=== PATIENT | male | born 1925 | race Caucasian/White ===

== ENCOUNTER 2016-10-20 17:51 | Inpatient (IN) | payer MEDICARE, BC ==
[~2016-10-20] VITALS: Ht 172.7 cm; Wt 72.7 kg
--- NOTE | ~2016-10-20 | HEMODYNAMI ---
PATIENT:MARY PIMENTEL MEDICAL RECORD: [id number] : [birth year] [facility] [id number] ADMISSION DATE: 10/20/16 Generatedon:10/22/20168:15 Patient name: MARY PIMENTEL Patient #: [id number] SSN: : 1925 Date of study: 10/22/2016 Page: Of Hemodynamic Procedure Report Patient Data Patient Demographics Procedure consent was obtained First Name: MARY Gender: Male Last Name: MARGARITO : 1925 Patient #: [id number] Age: 89 year(s) Race: Additional ID: [id number] Contact details Address: [address] [place] [address] [facility] State: [place] City: [place] Zip code: [address] Past Medical History History of disease Date Diagnosis Comments Peripheral vascular disease Allergies Allergen Reaction Date Comments Reported Other allergy 10/22/2016 Androgenic anabotic steroid Admission Admission Data Admission Date: 10/20/2016 Admission Time: 17:51 Room #: D.2113 Height (in.): 68 BSA: 1.98 (m2) Height (cm.): 172.72 BMI: 28.12 (kg/m2) Weight (lbs.): 184.97 Weight (kg.): 83.9 Lab Results Lab Result Date: 10/21/2016 Lab Result Time: 6:04 Biochemistry Name Units Result Min Max BUN mg/dl 50 --(----)-* 7 18 Creatinine mg/dl 2 --(----)-* 0.6 1.3 CBC Name Units Result Min Max Hematocrit % 44.2 --(*---)-- 42 54 Hemoglobin g/dl 15.1 --(-*--)-- 13.5 17.5 Procedure Procedure Types Cath Procedure Diagnostic Procedure LHC LHC w/Coronaries w/Grafts Miscellaneous Procedures Moderate Sedation up to 30 minutes Peripheral Cath Diagnostic Procedure Cath Peripheral Qbtrl-Rriqsyp-Kxx-Off Procedure Description Procedure Date Procedure Date: 10/22/2016 Procedure Start Time: 7:37 Procedure End Time: 8:14 Procedure Staff Name Function Ramses Sandy MD Performing Physician Adenike Mo RT Scrub Ad Chester RN Nurse Geronimo Gauthier RT Monitor Procedure Data Cath Procedure Fluoroscopy Diagnostic fluoroscopy Total fluoroscopy Time: 9.2 time: 9.2 min min Diagnostic fluoroscopy Total fluoroscopy dose: dose: 1384 mGy 1384 mGy Contrast Material Contrast Material Type Amount (ml) Isovue 300 215 Entry Location Entry Primary Successful Side Size Upsize 1 Upsize Entry Closure Stover ccessful Closure Location (Fr) (Fr) 2 (Fr) Remarks Device Remarks Femoral Right 5 Fr 6 Fr 6 Fr Exoseal artery Mid-Length Short Estimated blood loss: 10 ml Diagnostic catheters Device Type Used For End Catheter Placement Cordis 5Fr Pigtail Procedure Catheter (MP) Cordis 5Fr JL 4.0 Procedure Catheter (MP) Cordis 5Fr 3DRC Catheter Procedure (MP) Diagnostic Infinity 5Fr Procedure AR 2 MOD catheter Procedure Complications No complications Procedure Medications Medication Administration Route Dosage Oxygen NC 2 l/min Heparin Flush Bag added to field 2 bags (1000units/500ml NS) 0.9% NaCl I.V. 100 ml/hr Benadryl I.V. 50 mg Fentanyl I.V. 50 mcg Versed I.V. 0.5 mg Versed I.V. 0.5 mg Heparin Bolus I.V. 4000 units Dobutamine I.V. drip 5 mcg/kg/min (500mg/250ml D5W) Aspirin P.O. 325 mg Hemodynamics Rest BSA: 1.98 (m2) HGB: 15.1 (g/dl) O2 Consumption: Estimated: 217.22 (ml/min) O2 Co nsumption indexed: Estimated:109.71 (ml/min/m) Heart Rate: 61 (bpm) Snapshots Pre Cath Intra NCS Post Cath Vital Signs Time Heart Resp SPO2 etCO2 [id number] NIBP (mmHg) Rhythm Pain Sedation Rate (ipm) (%) (mmHg) (mmHg) Status Level (bpm) 7:23:48 53 17 91 0 0 181/71(136) NSR 0 (11) 10(A) , No pain 7:28:21 48 18 94 0 0 178/74(140) NSR 0 (11) 10(A) , No pain 7:32:53 41 18 98 0 0 184/71(136) NSR 0 (11) 10(A) , No pain 7:37:28 47 17 96 0 0 163/67(139) NSR 0 (11) 9(A) , No pain 7:41:54 54 17 92 0 0 155/68(133) NSR 0 (11) 9(A) , No pain 7:46:18 60 18 90 0 0 166/63(121) NSR 0 (11) 9(A) , No pain 7:50:46 64 18 92 0 0 148/68(124) NSR 0 (11) 9(A) , No pain 7:55:09 56 19 92 0 0 155/69(132) NSR 0 (11) 9(A) , No pain 7:59:33 63 17 90 0 0 165/67(119) NSR 0 (11) 9(A) , No pain 8:04:50 64 16 96 0 0 170/69(149) NSR 0 (11) 9(A) , No pain 8:10:12 57 16 95 0 0 172/67(135) NSR 0 (11) 9(A) , No pain 8:14:59 0 0 No Cuff NSR 0 (11) 9(A) , No pain Medications Time Medication Route Dose Verified Delivered Reason No alley Effectiveness by by 7:24:29 Oxygen NC 2 l/min Ad Duong Per physician Henrik Chester RN RN 7:24:39 Heparin Flush added 2 bags Ad Duong used for Bag to Henrik Chester RN procedure (1000units/500ml field RN NS) 7:24:52 0.9% NaCl I.V. 100 ml/hr Ad Galeanay Per physician Henrik Chester RN RN 7:25:46 Benadryl I.V. 50 mg Ad Ad Per physician Henrik Chester RN RN 7:35:15 Fentanyl I.V. 50 mcg Ad Duong for sedation Henrik Chester RN RN 7:35:22 Versed I.V. 0.5 mg Ad Ad for sedation Henrik Chester RN RN 7:56:01 Versed I.V. 0.5 mg Ad Ad for sedation Henrik Chester RN RN 7:56:14 Heparin Bolus I.V. 4000 units Ad Duong for Henrik Chester RN anticoagulation RN 8:08:25 Dobutamine I.V. 5 Ad Duong Per physician (500mg/250ml drip mcg/kg/min Henrik Chester RN D5W) RN 8:09:20 Aspirin P.O. 325 mg Ad Duong Per physician Henrik Chester RN day worker Log Time Note 7:01:07 Informed consent obtained and on chart 7:01:33 Diagnostic Cath status Elective 7:01:34 Ad Chester RN sent for patient. Start room use. 7:01:35 Time tracking: Regular hours 7:01:39 Plan of Care:Hemodynamics will remain stable., Cardiac rhythm will remain stable., Comfort level will be maintained., Respiratory function will remain adequate., Patient/ family verbilizes understanding of procedure., Procedure tolerated without complication., Recovers from procedure without complications.. 7:10:17 Patient received from Med II to CCL 1 Alert and oriented. Tansferred to table in Supine position. 7:10:18 Warm blankets applied, and beth hugger turned on for patient comfort. 7:10:18 Correct patient and procedure confirmed by team. 7:10:19 ECG and BP/O2 sat monitors applied to patient. 7:22:30 Vital chart was started 7:22:36 Baseline sample Acquired. 7:24:29 Oxygen 2 l/min NC was administered by Ad Chester RN; Per physician; 7:24:32 Rhythm: 2nd degree heart block 7:24:39 Heparin Flush Bag (1000units/500ml NS) 2 bags added to field was administered by Ad Chester RN; used for procedure; 7:24:52 0.9% NaCl 100 ml/hr I.V. was administered by Ad Chester RN; Per physician; 7:25:46 Benadryl 50 mg I.V. was administered by Ad Chester RN; Per physician; 7:26:09 H&P Date Dictated: 10/20/2016 Within 30 days and on chart.. 7:27:58 Pre-procedure instructions explained to patient. 7:27:59 Pre-op teaching completed and patient verbalized understanding. 7:28:00 Family in waiting room. 7:28:01 Patient NPO since Midnight. 7:28:29 Patient allergic to Other allergyAndrogenic anabotic steroid 7:28:31 Is the patient allergic to Iodine/contrast media? No. 7:28:33 Is patient on blood thinner?Yes 7:28:38 ACC The patient was administered the following blood thiners within the last 24 hours: ACCPlavix 7:28:39 Patient diabetic? Yes. 7:28:40 If diabetic: On Metformin? No 7:28:43 Previous problem with sedation/anesthesia? No ? 7:28:44 Snore? No 7:28:45 Sleep apnea? No 7:28:46 Deviated septum? No 7:28:46 Opens mouth fully? Yes 7:28:47 Sticks out tongue? Yes 7:28:48 Airway obstruction? No ? 7:28:50 Dentures? Yes out 7:28:57 Pre procedure: right dorsailis pedis pulse 1+ Palpable, but thready & weak; easily obliterated 7:28:59 Patient pain scale 0/10 ?. 7:29:05 IV patent on arrival in right wrist with 0.9% NaCl at O. 7:30:16 Lab Result : BUN 50 mg/dl 7:30:16 Lab Result : Creatinine 2 mg/dl 7:30:16 Lab Result : Hemoglobin 15.1 g/dl 7:30:16 Lab Result : Hematocrit 44.2 % 7:30:39 Lab results completed and on chart. 7:30:41 Right groin area was prepped with chlora-prep and draped in sterile fashion 7:30:43 Alarms reviewed by R. N. 7:30:43 Sharps counted by scrub and verified by R.N. 7:30:44 Physician paged 7:30:47 Use device set Femoral Dx 7:30:48 Tegaderm 4 x 4 opened to sterile field. 7:30:48 Acist Manifold opened to sterile field. 7:30:49 Acist Hand Control opened to sterile field. 7:30:50 Acist Syringe opened to sterile field. 7:30:50 Bag Decanter opened to sterile field. 7:30:51 Medline Cath Pack opened to sterile field. 7:30:51 Terumo 5Fr [place] Sheath opened to sterile field. 7:30:52 St Thong 260cm J .035 wire opened to sterile field. 7:30:53 Diagnostic Infinity 5Fr Multipack catheter opened to sterile field. 7:31:05 Procedure type changed to Cath procedure, Diagnostic procedure, LHC, LHC w/Coronaries w/Grafts, Miscellaneous Procedures, Moderate Sedation up to 30 minutes, Peripheral Cath Diagnostic Procedure, Cath Peripheral, Gpcqg-Qejkeer-Ndr-Off 7:31:16 Patient Height : 68 cm 7:31:22 Patient Weight : 184.97 kg 7:33:59 Physician arrived 7:33:59 --------ALL STOP TIME OUT------ 7:34:00 Final Timeout: patient, procedure, and site verified with staff and physician. All members of the team are in agreement. 7:34:01 Right groin site verified by team. 7:34:04 Physical assessment completed. ASA score P 2 - A patient with mild systemic disease as per Ramses Sandy MD. 7:34:07 Sedation plan: IV Moderate Sedation Versed, Fentanyl 7:35:14 Zero performed for pressure channel P1 7:35:15 Fentanyl 50 mcg I.V. was administered by Ad Chester RN; for sedation; 7:35:22 Versed 0.5 mg I.V. was administered by Ad Chester RN; for sedation; 7:37:21 Procedure started. 7:37:21 Full Disclosure recording started 7:37:23 Local anesthetic to right femoral artery with Lidocaine 2% by Ramses Sandy MD.INITIAL ACCESS ONLY 7:39:19 A 5 Fr sheath was inserted into the Right Femoral artery 7:39:27 IV Extension Set opened to sterile field. 7:39:56 Cook [facility] FIRM 260CM glide wire opened to sterile field. 7:40:41 Terumo TORQUE DEVICE PLASTIC .038 opened to sterile field. 7:41:33 Cordis 6Fr Brite Tip 35cm Sheath opened to sterile field. 7:41:43 Sheath upsized to a 6 Fr Mid-Length. 7:42:59 A Cordis 5Fr Pigtail Catheter (MP) was advanced over the wire and used for Procedure. 7:43:39 LV gram done using VARGAS 7:43:41 Injector settings: Ml/sec: 10, Volume: 20, 7:43:48 EF : 30 % 7:44:11 Abdominal angiogram w/ runoff was performed. 7:44:20 Left leg runoff performed. 7:45:06 Right leg runoff performed. 7:45:09 Catheter exchanged over wire. 7:45:15 A Cordis 5Fr JL 4.0 Catheter (MP) was advanced over the wire and used for Procedure. 7:47:30 LCA angiography performed. 7:47:32 Catheter exchanged over wire. 7:47:38 A Cordis 5Fr 3DRC Catheter (MP) was advanced over the wire and used for Procedure. 7:48:12 RCA angiography performed. 7:48:32 SVG to Diag angiography performed. 7:48:46 Catheter exchanged over wire. 7:49:24 St Thong 260cm J .035 wire opened to sterile field. 7:49:35 A Diagnostic Infinity 5Fr AR 2 MOD catheter was advanced over the wire and used for Procedure. 7:51:45 SVG to RCA angiography performed. 7:51:48 SVG to OM angiography performed. 7:53:54 Catheter exchanged over wire. 7:55:22 Wise Whisper J 300cm 0.014 guide wire opened to sterile field. 7:55:23 Aspectiva BasixCompak Inflation Kit opened to sterile field. 7:55:24 Hotlease.Comtronic Launcher 6Fr AR 2.0 guide catheter opened to sterile field. 7:55:32 6 Fr AR 2 guide catheter was inserted over the wire 7:55:39 WHISPER wire advanced. 7:55:56 Terumo 6Fr [place] Sheath opened to sterile field. 7:56:01 Versed 0.5 mg I.V. was administered by Ad Chester RN; for sedation; 7:56:14 Heparin Bolus 4000 units I.V. was administered by Ad Chester RN; for anticoagulation; 7:56:45 Wire advanced across lesion. 7:57:29 Inflation number: 1 A Harbor View Sci Garden 2.5 X 15 balloon was prepped and advanced across the Aorta Right -> Dist RCA, then inflated to 17 LISSETTE for 0:10 (min:sec). 7:57:55 Inflation number: 2 The Harbor View Sci Garden 2.5 X 15 balloon was reinflated across the Aorta Right -> Dist RCA, to 14 LISSETTE for 0:10 (min:sec). 7:59:08 Balloon removed over the wire. 7:59:53 Inflation Number: 3 A Biofreedom 2.5 x 14 stent was prepped and advanced across the Aorta Right -> Dist RCA. The stent was deployed at 15 LISSETTE for 0:10 (min:sec). 8:02:55 Stent catheter was removed intact over wire. 8:02:56 Wire removed. 8:02:56 Guide catheter removed. 8:03:03 Cordis 6Fr Exoseal opened to sterile field. 8:03:17 Sheath upsized to a 6 Fr Short. 8:03:24 Sheath removed intact; hemostasis achieved with Exoseal to the Right Femoral artery. 8:03:26 Procedure ended.(Physican Out) 8:08:25 Dobutamine (500mg/250ml D5W) 5 mcg/kg/min I.V. drip was administered by Ad Chester RN; Per physician; 8:09:20 Aspirin 325 mg P.O. was administered by Ad Chester RN; Per physician; 8:09:38 Fluoroscopy time 09.20 minutes. 8:09:44 Fluoroscopy dose: 1384 mGy 8:09:44 Flurop Dose total: 1384 8:09:49 Contrast amount:Isovue 300 215ml. 8:09:50 Sharps counted by scrub and verified by R.N. 8:09:52 Insertion/operative site no bleeding no hematoma. 8:09:54 Post-op/insertion site Right Femoral artery dressed using a 4 x 4 and Tegaderm. 8:09:59 Post right femoral artery:stable, soft, clean and dry 8:10:01 Post Procedure Pulses reassessed and unchanged 8:10:03 Post-procedure physical assessment completed. ASA score P 2 - A patient with mild systemic disease as per Ramses Sandy MD. 8:10:06 Post procedure rhythm: unchanged. 8:10:08 Estimated blood loss: 10 ml 8:10:11 Post procedure instruction explained to patient.Patient verbalizes understanding. 8:10:11 Patient needs reinforcement of post procedure teaching. 8:14:31 Procedure and supply charges have been captured, reviewed, submitted and are correct. 8:14:35 Procedure Complication : No complications 8:14:37 Vital chart was stopped 8:14:37 See physician's report for complete and final results. 8:14:39 Report given to PCU. 8:14:43 Patient transfered to PCU with Stretcher. 8:14:45 Procedure ended. 8:14:45 Full Disclosure recording stopped 8:15:16 End room use (Document Last) Intervention Summary Intervention Notes Time ActionType Lesion and Equipment Action# Pressure Duration Attributes Used 7:57:29 Inflate Aorta Right Harbor View Sci 1 17 00:10 balloon -> Dist RCA Garden 2.5 X 15 balloon 7:57:55 Reinflate Aorta Right Harbor View Sci 2 14 00:10 balloon -> Dist RCA Garden 2.5 X 15 balloon 7:59:53 [address] stent Aorta Right Biofreedom 3 15 00:10 -> Dist RCA 2.5 x 14 stent Device Usage Item Name Manufacture Quantity Catalog Number Hospital Part Current Mini mal Lot# / Charge Number Stock Stock Serial# Code Tegaderm 4 3M 1 [id number] [id number] 302681 932024 5 x 4 Acist Acist 1 51639 547027 153641 248110 5 [employer] AAMPP Acist Hand Acist 1 15605 312083 907919 720294 5 Intelligent Data Sensor Devices Systems AAMPP Acist Acist 1 38130 628330 792736 093536 20 Syringe Medical Systems AAMPP Bag Microtek 1 2002S 758824 04792 637793 5 NanoInk Inc. Medline Cardinal 1 [id number] 573616 95678 726996 5 Cath Pack Health Terumo 5Fr Terumo 1 HCO389 158550 008090 399275 [address] St Thong 2 492605 080265 734787 114289 30 260cm J .035 wire Diagnostic Cardinal 1 QK0259 881425 80482 627946 30 Infinity Health 5Fr Multipack catheter IV Hospira 1 58132-38 531573 11010 241319 5 Extension Set Regenesance [facility] 1 [id number] 183968 561485 5 ROADRUNNER FIRM 260CM glide wire Terumo Harbor View 1 TD01 583646 359836 937515 5 TORQUE Scientific DEVICE PLASTIC .038 Cordis 6Fr Cardinal 1 [id number] 318278 651078 389367 1 Brite Tip Health 35cm Sheath Cordis 5Fr Cardinal 1 455877 5 Pigtail Health Catheter (MP) Cordis 5Fr Cardinal 1 804430 5 JL 4.0 Health Catheter (MP) Cordis 5Fr Cardinal 1 382961 5 3DRC Health Catheter (MP) Diagnostic Cardinal 1 [id number] 468983 739796 117657 20 Culture Jam Health 5Fr AR 2 MOD catheter Wise Wise 1 [id number] 721669 472555 559686 5 Whisper J Vascular 300cm 0.014 guide wire Merit Merit 1 SC2905 282344 906052 509533 15 BasixCompak Medical Inflation Kit Medtronic Medtronic 1 [id number] 388824 09012 323496 1 Launcher 6Fr AR 2.0 guide catheter Terumo 6Fr Terumo 1 HWW147 033535 181094 647739 40 Waynoka Sheath Harbor View Sci Harbor View 1 [id number] 111315 506316 713384 1 [id number] Secustream Technologies 2.5 X 15 balloon Biofreedom Biosensors 1 [facility]2-2514 527571 886227 5 [id number] 2.5 x 14 Europe SA stent Cordis 6Fr Cardinal 1 EX600 849060 293439 467281 10 [facility] BorrowersFirst Signature Audit [place] Stage Time Signature Unsigned Intra-Procedure 10/22/2016 Geronimo Gauthier 8:15:32 AM RT(R) Signatures Monitor : Geronimo Gauthier RT Signature : Date : Time : [facility] [address] [place] [address]
--- NOTE | ~2016-10-20 | DS ---
PATIENT:MARY PIMENTEL :[birth year] MEDICAL RECORD: [id number] DISCHARGE SUMMARY ADMISSION DATE: 10/20/16 DISCHARGE DATE: 10/23/16 DIAGNOSES: 1. Non-Q-wave myocardial infarction. 2. Bradycardia. 3. Percutaneous transluminal coronary angioplasty stent right coronary artery this admission. 4. Cardiomyopathy. 5. Congestive heart failure, chronic systolic dysfunction. 6. Hypertension. 7. Noninsulin dependent diabetes. HOSPITAL COURSE: Mr. Pimentel presents with shortness of breath, dyspnea on exertion and angina, was found to have single vessel disease of the RCA after the patent vein graft. He underwent successful PTCA stent of this territory, had no further anginal symptomatology. He does have a cardiomyopathy, this is not new. His ejection fraction is in the 30% to 35% range, it has been this way for years. He did receive dobutamine post-cardiac catheterization, so he would not go into heart failure with fluid. He had no heart failure symptomatology. He was discharged home with the addition of Plavix to his medical regimen times 1 month. He had discontinuation of his Coreg due to significant bradycardia. He will follow up with [facility] in 1 month. TRANSINT:[id number] Voice Confirmation ID: [id number] DOCUMENT ID: [id number] ROSEANNA EARLY MD CC: [id number] DICTATION DATE: 10/23/16954 MANAGER RETAIL: 10/24/16 0348 DIS IN 10/23/16 [facility] [address] [place] [address]
[~2016-10-20 17:51] MED LIST: ACIDOPHILUS LAC1 CAP PO; ACTOS30 MG PO; AMBIEN10 MG PO; AVALIDE 150-12.1 TA1 PO; AVALIDE 300-12.1 TA1 PO; BAYER CHEWABLE81 MG PO; BISCOLAX10 MG/SUPP RC; CARDURA2 MG PO; CLEOCIN HCL300 MG PO; COREG12.5 MG PO; COREG25 MG PO; FLOMAX0.4 MG PO; K-DUR20 MEQ PO; LASIX20 MG PO; LIDODERM 5 %1 PATCH TD; MEVACOR40 MG PO; NITROSTAT0.4 MG SL; PERCOCET 5-3251 TAB PO; PLAVIX75 MG PO; SOMA350 MG PO
--- NOTE | 2016-10-20 18:17 | NUR ---
CALLED DR. AVERY'S OFFICE, WAITING ON SAFETY ATTENDANT TO CALL BACK.
[2016-10-20 18:23] LABS: BASOPHILS 0.2 % (0-2); EOSINOPHILS 2.3 % (0-7); HEMATOCRIT 49.1 % (42.0-54.0); HEMOGLOBIN 16.9 g/dL (13.5-17.5); IMMATURE GRANULOCYTES 0.2 % (0-5); LYMPHOCYTES 30.4 % (15-50); MCH 34.3 pg (26.0-34.0); MCHC 34.4 g/dL (31.0-37.0); MCV 99.6 fL (80.0-100.0); MEAN PLATELET VOLUME 9.7 fL (7.4-10.4); MONOCYTES 12.5 % (2-11); NEUTROPHILS 54.4 % (40-80); RBC 4.93 10x6/uL (4.20-6.10); RDW 14.4 % (11.5-14.5); WBC 5.2 10x3/uL (4.8-10.8)
[2016-10-20 18:24] LABS: PLATELET COUNT 102 10x3/uL (130-400)
[2016-10-20 19:11] LABS: ALKALINE PHOSPHATASE 118 U/L (46-116); CALC OSMOLALITY 289 mosm/kg (275-300); CARBON DIOXIDE 29.8 mmol/L (21.0-32.0); CHLORIDE - SERUM 102 mmol/L (98-107); GLUCOSE 93 mg/dL (74-106); POTASSIUM - SERUM 3.8 mmol/L (3.5-5.1); PRO BNP 2257 pg/mL (0-450); SODIUM 140 mmol/L (136-145); UREA NITROGEN 43 mg/dL (7-18)
[2016-10-20] MEDS ORDERED: PERCOCET 5-3251 TAB PO (19:40)
[2016-10-20] MEDS ORDERED: FLOMAX0.4 MG PO (19:41)
[2016-10-20] MEDS ORDERED: CYMBALTA30 MG PO (19:41)
[2016-10-20 19:54] LABS: ALBUMIN 3.5 g/dL (3.4-5.0); CALCIUM 8.8 mg/dL (8.5-10.1); PROTEIN - SERUM 7.1 g/dL (6.4-8.2)
[2016-10-20 19:55] LABS: ALT (SGPT) 27 U/L (10-68)
--- NOTE | 2016-10-20 19:55 | NUR ---
ALERT/AWAKE DENIES PAIN OR ANY NEEDS. RR 18 EVEN U/L WITH 02 AT 2L/NC. HAS NO IV ACCESS. SEVERAL ATTEMPTS MADE. WILL CALL ICU NURSE TO TRY.
[2016-10-20 19:56] LABS: CREATININE - SERUM 1.7 mg/dL (0.6-1.3); eGFR NON AFRICAN AMERICAN 41 mL/min (90-120)
[2016-10-20 19:57] LABS: CKMB 1.5 U/L (0.0-3.6); CREATINE KINASE 61 UL (21-232); TROPONIN-I 0.758 ng/mL (0.000-0.060)
[2016-10-20 20:00] VITALS: BP 144/75
--- NOTE | 2016-10-20 20:05 | NUR ---
RECEIVED CALL FROM DR SIBLEY AND GAVE ONE TIME ORDER FOR LASIX 40 MG PO AFTER EXPLAINING WE ARE UNABLE TO GET AN IV IN.
[2016-10-20 20:18] LABS: THYROID STIMULATING HORMONE 1.33 uIU/mL (0.36-3.74)
[2016-10-21] VITALS (7 sets, daily range): BP systolic 133–186; BP diastolic 46–68; Ht 172.7 cm; Wt 72.7 kg
[2016-10-21 01:49] LABS: CKMB 1.3 U/L (0.0-3.6); CREATINE KINASE 43 UL (21-232); TROPONIN-I 0.687 ng/mL (0.000-0.060)
--- NOTE | 2016-10-21 02:18 | NUR ---
RESTING ON LEFT SIDE WITH EYES CLOSED RR 18 EVEN U/L. NO S/S OF DISCOMFORT. BED IS LOW WITH SR UP X2. CALL LIGHT IN REACH.
--- NOTE | 2016-10-21 04:14 | NUR ---
SITED IV IN RT FA WITH 22G. FLUSHED AND SL. AMBULATED TO BR TO VOID.
--- NOTE | 2016-10-21 06:26 | NUR ---
CALLED DR EARLY RE: PATIENT'S BRADYCARDIA. ORDERED TO DC COREG, AND TO INFORM CARLOS DELGADILLO APN TODAY.
[2016-10-21 06:57] LABS: CREATINE KINASE 38 UL (21-232)
[2016-10-21 08:10] LABS: ANION GAP 13.4 mmol/L (8-16); BASOPHILS 0.4 % (0-2); CALCIUM 8.5 mg/dL (8.5-10.1); CARBON DIOXIDE 27.5 mmol/L (21.0-32.0); EOSINOPHILS 2.6 % (0-7); HEMATOCRIT 44.2 % (42.0-54.0); HEMOGLOBIN 15.1 g/dL (13.5-17.5); IMMATURE GRANULOCYTES 0.2 % (0-5); MCH 33.8 pg (26.0-34.0); MCHC 34.2 g/dL (31.0-37.0); MCV 98.9 fL (80.0-100.0); MEAN PLATELET VOLUME 9.9 fL (7.4-10.4); MONOCYTES 12.5 % (2-11); NEUTROPHILS 57.3 % (40-80); PLATELET COUNT 107 10x3/uL (130-400); POTASSIUM - SERUM 3.9 mmol/L (3.5-5.1); RBC 4.47 10x6/uL (4.20-6.10); RDW 14.4 % (11.5-14.5); WBC 5.7 10x3/uL (4.8-10.8)
--- NOTE | 2016-10-21 08:29 | HP ---
PATIENT: MARY PIMENTEL MEDICAL RECORD: [id number] ACCOUNT: [id number] LOCATION:[address] : [birth year] ADMISSION DATE: 10/20/16 HISTORY AND PHYSICAL EXAMINATION DATE OF ADMISSION: 10/20/2016 CHIEF COMPLAINT: "I can't breathe"; orthopnea. HISTORY OF PRESENT ILLNESS: This is an 89-year-old white male with a known history of heart disease, diabetes and hypertension, who had 1-2 day history of being unable to breathe, especially when he lies down at night. states he was pale this morning, he got into his recliner and she fed him something and his color became better. He has had this before. He did not want to go to the Emergency Room, so he came here, but there is really nothing I can do for him here, so I am directly admitting him to [facility] for further evaluation with his past medical history and his current symptoms. PAST MEDICAL HISTORY AND PAST SURGICAL HISTORY: He has a history of coronary artery disease with 5-vessel CABG in 1999 after a myocardial infarction. He is followed by Dr. Sandy. He has had a stent to the distal right coronary artery in August 2013. Last echo that I could find was 2014 with an ejection fraction of 35%-40%. For the past medical history, it includes type 2 diabetes, depression, hyperlipidemia, hypertension, peripheral artery disease, spinal stenosis of the lumbar spine. Past surgical history: Coronary artery bypass graft times 5, cholecystectomy, partial colectomy for colon cancer, lumbar spine surgery for spinal stenosis, TURP. DRUG ALLERGIES: Androgenic anabolic steroids. HOME MEDICATIONS: Include Ambien 10 mg 1 p.o. q.h.s., Flomax 0.4 mg 1 p.o. daily, gabapentin 100 mg 1 p.o. t.i.d., sertraline 50 mg 1 p.o. daily, Percocet 5/325 one p.o. q.6 hours p.r.n. pain, Actos 30 mg once a day, carvedilol 25 mg twice a day, Plavix 75 mg once a day, Lasix 20 mg once a day, duloxetine 30 mg once a day, doxazosin 4 mg once a day, irbesartan/HCTZ 300/12.5 once a day. FAMILY HISTORY: Father is ; he had coronary artery disease. Mother is ; she had arthritis. REVIEW OF SYSTEMS: GENERAL: No major weight changes. HEENT: No particular sinus or allergy problems. RESPIRATORY: Former smoker. No diagnosis of COPD. GASTROINTESTINAL: He has had some reflux problems. He has a history of colon cancer with partial colectomy. GENITOURINARY: He has had a TURP twice, still with some BPH symptoms. MUSCULOSKELETAL: Back pain with spinal stenosis. He has had some lumbar epidural injections. NEUROLOGIC: No seizures or migraine headaches. PSYCHIATRIC: He has some depression. PHYSICAL EXAMINATION: VITAL SIGNS: Blood pressure 120/50. He is afebrile. GENERAL: He does not appear to be in acute distress, but he is breathing a little harder than normal. HISTORY AND PHYSICAL [id number] MARY PIMENTEL HEENT: Grossly within normal limits. NECK: Supple. No JVD, no bruits. HEART: Regular rate and rhythm without murmur. LUNGS: Fairly clear. ABDOMEN: Soft, flat, nontender. EXTREMITIES: Trace if any edema. He is in a wheelchair in my office. LABORATORY DATA: Lab work done in the hospital, CBC with a white count of 5200, hemoglobin 16.9, hematocrit 49.1 and platelet count 102,000. Basic metabolic panel is all okay except BUN 43, creatinine 1.7. Liver functions are all normal. CK 61, CK-MB 1.5, troponin 0.758, which is elevated. ProBNP 2257. TSH is normal. IMAGING DATA: Chest x-ray preliminary report shows emphysematous changes in the lungs and no acute cardiopulmonary abnormality seen. ASSESSMENT: 1. Acute systolic congestive heart failure with orthopnea, elevated proBNP. 2. Elevated troponin in a patient with a history of coronary artery disease. 3. Hypertension. 4. Diabetes. PLAN: We will admit. We will diurese. Serial cardiac enzymes. We will consult Dr. Sandy for the elevated cardiac enzymes and proBNP. Other tests and procedures as warranted. TRANSINT:[id number] Voice Confirmation ID: [id number] DOCUMENT ID: [id number] ROSSY AVERY MD at 0829 CC: [id number] DICTATION DATE: 10/20/162219 [employer] SPECIALTY COOK: 10/20/16 2314 ADM IN [place] [address] [place] [address]
--- NOTE | 2016-10-21 09:38 | NUR ---
CONSENTS OBTAINED FOR HEART CATH LATER TODAY WITH . AT BEDSIDE TALKING WITH PT. PT VERBALIZED UNDERSTANDING AND DENIES ANY QUESTIONS OR CONCERNS. DENTURES REMOVED AND PLACED IN CUP. EMPTIED 400ML OF CLEAR YELLOW URINE FROM URINAL AND RETURNED BACK TO PTS BEDSIDE. AT BEDSIDE ALSO. HELD LOVENOX PER VERBAL ORDER FROM CARLOS DELGADILLO APN R/T HAVING HEART CATH TODAY. PT RESTING IN BED AND DENIES ANY CURRENT PAIN OR NEEDS. CL IN REACH. WILL CPOC.
--- NOTE | 2016-10-21 12:43 | NUR ---
CATH HAS BEEN CHANGED FOR TOMORROW R/T EMERGENCY CATHS. AT BEDSIDE AND EXPLAINED TO PT. PT VERBALIZED UNDERSTANDING AND IS NOW ABLE TO EAT, PROVIDED PT WITH HIS DENTURES AND ASSISTED WITH MEAL TRAY. AT BEDSIDE AND DENIES ANY QUESTIONS OR CONCERNS. WILL CPOC.
[2016-10-21 13:05] LABS: CREATINE KINASE 43 UL (21-232)
[2016-10-21 13:06] LABS: TROPONIN-I 0.654 ng/mL (0.000-0.060)
--- NOTE | 2016-10-21 20:25 | NUR ---
PT RECEIVED SITTING UP IN BED AAOX3 AT THIS TIME. REQUESTS SPRITE AND ICE CREAM. ASSESSMENT COMPLETED PER FLOW SHEET AT THIS TIME. PT DENIES OTHER NEEDS. BED LOW. PHONE AND CALL LIGHT IN REACH. SRX2.
--- NOTE | 2016-10-21 22:09 | NUR ---
PM MEDS GIVEN AT THIS TIME. PT DENIES NEEDS. BED LOW. PHONE AND CALL LIGHT IN REACH. SRX2.
[2016-10-22] VITALS: BP 165/65
--- NOTE | 2016-10-22 00:46 | NUR ---
PT RESTING QUIETLY AT THIS TIME WITH EYES CLOSED. RESPIRATIONS EVEN, NON-LABORED. NO ACUTE DISTRESS NOTED AT THIS TIME. BED LOW. PHONE AND CALL LIGHT IN REACH. SRX2.
[2016-10-22 04:00] VITALS: BP 148/64
--- NOTE | 2016-10-22 05:55 | NUR ---
LASIX IVP GIVEN AT THIS TIME. PT DENIES NEEDS. BED LOW. PHONE AND CALL LIGHT IN REACH. SRX2.
--- NOTE | 2016-10-22 08:18 | NUR ---
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
--- NOTE | 2016-10-22 08:30 | NUR ---
PT ARRIVED BACK IN ROOM VIA STREATCHER. RIGHT GROIN DRESSING INTACT AND DRY. RLE PEDAL PULSE HEARD WITH DOPPLER. WILL CONTINUE TO MONITOR. B/P 187/48 P 42 R 18 TEMP 97.4 (A) POX 98% 2L O2.
[2016-10-22 12:00] VITALS: BP 166/42
[2016-10-22 16:00] VITALS: BP 125/54
[2016-10-22 20:00] VITALS: BP 152/65
--- NOTE | 2016-10-22 21:30 | NUR ---
PT REPORTS BURNING AND PAINFUL URINATION. PT STATES HE FEELS LASIX IS RESPONSIBLE FOR THE NEW ONSET OF THIS DISCOMFORT. SPOKE WITH PT AT LENGTH IN REGARDS TO HIS NEW [id number]. PT STATES HE WILL NOT TAKE ANOTHER DOSE OF LASIX UNTIL HE CAN SPEAK WITH HIS PHYSICIAN REGARDING THE MEDICATION. REASSURED PT I WOULD COMPLY WITH HIS WISHES. WILL REPORT TO DAY SHIFT NURSE IN AM OF PT'S REQUEST TO SPEAK WITH HIS PHYSICIAN PRIOR TO RECEIVING ANOTHER DOSE OF LASIX.
[2016-10-23] VITALS: BP 153/64
--- NOTE | 2016-10-23 08:05 | NUR ---
AM NOTES - PT APPEARS TO BE SLEEPING WITH EQUAL AND NON LABORED BREATHS. 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 DOBUTAMINE AT 12.6CC/HR. PT ON 2L O2 VIA NC. WILL CONTINUE TO MONITOR.
[2016-10-23 08:07] VITALS: BP 157/53
--- NOTE | 2016-10-23 10:44 | NUR ---
Patient Name: MARY PIMENTEL Admission Status: Elective Accout number: [id number] Admission Date: 10-20-2016 : 1925 Admission Diagnosis: Attending: TERRI Current LOS: 3 Anticipated DC Date: 10-23-2016 Planned Disposition: Home Primary Insurance: MEDICARE A & B Discharge Planning Comments: * Is the patient Alert and Oriented? Yes 0 * How many steps to enter\exit or inside your home? none 0 * PCP DR. AVERY 0 * Pharmacy [facility] 0 * Preadmission Environment Home with Family 0 * ADLs Independent 0 * Equipment [facility]ane Walker 0 * Other Equipment NO [employer] EQUIPMENT PROVIDER PREFERENCE 0 * List name and contact numbers for known caregivers / representatives who currently or will assist patient after discharge: MARCO ANTONIO PIMENTEL, SPOUSE, 0 * Community resources currently utilized None 0 * Please name any agencies selected above. NONE 0 * Additional services required to return to the preadmission environment? No 0 * Can the patient safely return to the preadmission environment? Yes 0 * Has this patient been hospitalized within the prior 30 days at any hospital? No 0 CM MET WITH PT IN ROOM TO DISCUSS DISCHARGE PLANNING AND NEEDS. PT REPORTS LIVING AT HOME INDEPENDENTLY WITH SPOUSE. PT REPORTS HAVING A CANE AND WALKER IF NEEDED AT HOME. PT HAS NO OUTSIDE SERVICES ASSISTING IN THE HOME. CM DISCUSSED AVAILABILITY OF HOME HEALTH, REHAB SERVICES AND ADDITIONAL MEDICAL EQUIPMENT. PT DENIES DISCHARGE NEEDS, REPORTS HIS SPOUSE WILL PICK HIM UP AFTER HER HAIR APPOINTMENT AND HE IS TRYING TO CALL HER NOW. CM OFFERED ASSISTANCE IN CALLING FAMILY IF NEEDED, PT WILL NOTIFY CM IF HE NEEDS ASSISTANCE. PT PLANS TO DISCHARGE HOME WITH SPOUSE TODAY, DENIES DISCHARGE NEEDS. Rn Med Surg: Francisco Javier Duncan
--- NOTE | 2016-10-23 15:38 | NUR ---
D/C - PT AND GIVE VERBAL AND WRITTEN D/C INSTRUCTIONS. IV D/C IN RIGHT FA. PT TOLERATED WELL. PT D/C HOME. LEFT FLOOR VIA WHEELCHAIR WITH VOLUNTEER. WILL D/C
--- NOTE | 2016-10-23 16:36 | OP ---
PATIENT NAME: MARY PIMENTEL MEDICAL RECORD: [id number] :[birth year] LOCATION:D.M2 D.2113 ADMISSION DATE:10/20/16 SURGEON: ROSEANNA EARLY MD DATE OF OPERATION: 10/21/2016 PROCEDURES: 1. Aortofemoral runoff. 2. Abdominal aortography. INDICATION: Claudication and peripheral vascular disease. DESCRIPTION OF PROCEDURE: After informed consent was obtained and after detailed explanation of risks, benefits as well as alternative therapies, the patient elected to proceed with angiogram and aortofemoral runoff. The right femoral area had a preexisting sheath from cardiac intervention. All catheters were exchanged through this sheath. FINDINGS: 1. The abdominal aortography was performed. The catheter was pulled down for aortofemoral runoff. Abdominal aortography reveals moderate diffuse disease, but no flow limiting stenosis, no renal artery stenosis, no dissection. 2. LEFT LEG: A. Iliac: The common internal and external iliacs have moderate diffuse disease, but are patent with no discrete flow-limiting stenosis. B. Femoral system: The common and deep femoral are widely patent. Superficial femoral has [id number] diffuse disease. There is a previously placed stent, this is patent. Popliteal and infrapopliteal vessels revealed runoff of 2 vessels through the peroneal and posterior tibial. 3. RIGHT LEG: A. Iliac: The common internal and external iliacs have severe diffuse disease and heavy calcification, but are patent. B. Femoral system: There is a previously placed stent in the common femoral, this is patent. Superficial femoral appears to be severely diffusely diseased throughout the proximal and mid portion of the vessel. The distal vessel is moderately diffusely diseased. There is 2-vessel runoff through the popliteal, posterior tibial and peroneal. OVERALL IMPRESSION: Severe diffuse disease bilaterally, not ideal for transcatheter revascularization due to the extensive nature. Continue medical management of the peripheral vascular disease and peripheral risk factors. TRANSINT:[id number] Voice Confirmation ID: [id number] DOCUMENT ID: [id number] ROSEANNA EARLY MD at 1636 CC: [id number] DICTATION DATE: 10/22/16 0819 BUDGET CONSULTANT: 10/22/16 1631 DIS IN 10/23/16 [facility] [address] [place] [address]
--- NOTE | 2016-10-23 16:36 | OP ---
PATIENT NAME: MARY PIMENTEL MEDICAL RECORD: [id number] :[birth year] LOCATION:D.M2 D.2113 ADMISSION DATE:10/20/16 SURGEON: ROSEANNA EARLY MD DATE OF OPERATION: 10/21/2016 PROCEDURES: 1. PTCA stent RCA through the patent vein graft. 2. Left heart catheterization. 3. Selective coronary angiography. 4. Vein graft angiography. 5. Left ventriculogram. INDICATION: Non-Q-wave myocardial infarction and coronary artery disease. PROCEDURE IN DETAIL: After informed consent was obtained and after a detailed explanation of the risks, benefits as well as alternative therapies, the patient elected to proceed with angiogram and angioplasty. The right femoral area was prepped and draped in normal sterile fashion. The right femoral artery was cannulated via modified Seldinger technique with placement of a 6-[place]ib[place] sheath. All catheters were exchanged through this sheath. FINDINGS: Left ventriculogram performed in standard 30-degree VARGAS view reveals global hypokinesis throughout all segments, overall ejection fraction is 30% to 35%. This is unchanged from previous evaluation of his left ventricular function. SELECTIVE CORONARY ANGIOGRAPHY: 1. Left main showed no significant angiographic disease. 2. Left anterior descending is totally occluded. 3. Left circumflex is totally occluded. 4. Right coronary artery is totally occluded. 5. LEMUS is not grafted. 6. There is a vein graft that appears to go to an LAD diagonal, this is widely patent. The diagonal is small and diffusely diseased. 7. There is a vein graft that appears to go to LAD, OM1 and OM2. It appears that the LAD segment is occluded. It is patent through the OM1 and OM2; both vessels are small, diffusely diseased, but patent. 8. There is a vein graft to the right coronary artery. After this vein graft, there is a previously placed stent. Just before the stent and in the proximal portion of the stent, there is 80% in-stent restenosis. PTCA STENT OF THE RCA THROUGH THE VEIN GRAFT: The balloon used was a 2.5 x 15 mm [place], stent used was a 2.5 x 14 mm [employer]. Result was 0% residual stenosis. OVERALL IMPRESSION: Successful percutaneous transluminal coronary angioplasty stent of the right coronary artery through the patent vein graft going from 80% initial stenosis to 0% residual stenosis. TRANSINT:[id number] Voice Confirmation ID: [id number] DOCUMENT ID: [id number] OPERATIVE REPORT [id number] MARY PIMENTEL JEFFREY MD at 1636 CC: [id number] DICTATION DATE: 10/22/16818 NEUROSURGERY PHYSICIAN: 10/22/16 1527 DIS IN 10/23/16 [facility] [address] [facility]
== END 2016-10-23 15:40 | disposition home or self-care (01) | DRG 246 ==
LOC: D.M2 17:51
PROVIDERS: Internal Medicine Interventional Cardiology; ADMIT Family Medicine
PROC: 027034Z Dilation of Coronary Artery, One Artery with Drug-eluting Intraluminal Device, Percutaneous Approach (ICD-10-PCS; principal; 2016-10-21)
PROC: 4A023N7 Measurement of Cardiac Sampling and Pressure, Left Heart, Percutaneous Approach (ICD-10-PCS; 2016-10-21)
PROC: B2121ZZ Fluoroscopy of Single Coronary Artery Bypass Graft using Low Osmolar Contrast (ICD-10-PCS; 2016-10-21)
PROC: B2111ZZ Fluoroscopy of Multiple Coronary Arteries using Low Osmolar Contrast (ICD-10-PCS; 2016-10-21)
PROC: B2151ZZ Fluoroscopy of Left Heart using Low Osmolar Contrast (ICD-10-PCS; 2016-10-21)
PROC: B4101ZZ Fluoroscopy of Abdominal Aorta using Low Osmolar Contrast (ICD-10-PCS; 2016-10-21)
DX: I21.4 Non-ST elevation (NSTEMI) myocardial infarction (principal); I50.23 Acute on chronic systolic (congestive) heart failure; I42.9 Cardiomyopathy, unspecified; I25.10 Atherosclerotic heart disease of native coronary artery without angina pectoris; E11.9 Type 2 diabetes mellitus without complications; I11.0 Hypertensive heart disease with heart failure; Z00.6 Encounter for examination for normal comparison and control in clinical research program; E78.5 Hyperlipidemia, unspecified; F32.9 Major depressive disorder, single episode, unspecified; I73.9 Peripheral vascular disease, unspecified; M48.06 Spinal stenosis, lumbar region; I25.2 Old myocardial infarction; Z95.5 Presence of coronary angioplasty implant and graft; Z95.1 Presence of aortocoronary bypass graft